=== PATIENT | female | born 1960 | race African-American/Black ===

== ENCOUNTER 2017-12-27 11:05 | Emergency (ER) | payer MEDICAID ==
[~2017-12-27] VITALS: Ht 165.1 cm; Wt 56.7 kg
[2017-12-27] MEDS ORDERED: TRAMADOL HCL50 MG ORAL (11:19)
[2017-12-27] MEDS ORDERED: IBUPROFEN600 MG ORAL (11:19)
[2017-12-27] MEDS ORDERED: Lidocaine 1% 10mg/ml/Epi 0.005mg/ml 30ml vial INJ ONE (12:00)
[2017-12-27] MEDS ORDERED: Bacitracin Oint UD TOPIC ONE (12:00)
--- NOTE | 2017-12-27 13:28 | Emergency Room Report ---
History of Present Illness General Chief Complaint: Lower Extremity Injury Source: Patient Present Illness HPI Something hit her knee on December 01. She had x-rays done at [facility] which she reports were negative. She poorly tolerated the frantz wrap given to her as there was more pain and therefore did not use it. She had a hematoma there. She has been left with swelling in front of the knee. Doesn't limit her motion however she's had decreased sensation over it in addition to that it feels strange to her. She's been referred to emt driver. She's been taking Motrin and tramadol for the pain. She is here to see about getting it aspirated. No fevers, chills, calf pain, swelling, dyspnea, NVD, dysuria, headache. Allergies: Coded Allergies: No Known Allergies (Unverified , 12/27/17) Patient History Past Medical History: see triage record Social History: Reports: smoking Social History Narrative Last Menstrual Period: long time ago Reviewed Nursing Documentation: PMH: Agreed; PSxH: Agreed Nursing Documentation-PMH Past Medical History: No Stated History Review of Systems All Other Systems: negative except mentioned in HPI Physical Exam Vital Signs Date Time Temp Pulse Resp B/P (MAP) Pulse Ox O2 Delivery O2 Flow Rate FiO2 12/27/17 11:14 98.0 72 18 97/52 96 Room Air 98.1 Sp02 EP Interpretation: reviewed, normal General Appearance: well appearing, no apparent distress, thin Head: normocephalic, atraumatic Eyes: bilateral eye normal inspection ENT: hearing grossly normal, normal voice, moist mucus membranes Neck: full range of motion, supple Respiratory: no respiratory distress, speaking full sentences Gastrointestinal: normal inspection Musculoskeletal: back normal, digits/nails normal, gait/station normal, normal range of motion, no calf tenderness, swelling - prepatellar bursal swelling which is fluctuant Neurologic: alert, normal gait, sensory deficit - reported laterally over the effusion Psychiatric: mood/affect normal Skin: no rash, other - no erythema or warmth Procedures Additional Procedure Procedure Narrative Joint aspiration. Informed consent. Betadine. Drape, Lido epi. Aspirated 70 ml of pink tinged straw colored fluid. Tolerated well. Medical Decision Making Diagnostic Impression: Primary Impression: Prepatellar bursitis Qualified Codes: M70.41 - Prepatellar bursitis, right knee ER Course Patient post trauma to R knee with swelling. DDX: hematoma, bursitis, contusion , gout amongst others. No evidence of infection. Clinically, no fx and h/o prior x-rays neg. Discussed possibility of aspiration with risks of infection and re-accumulation. Patient agreed. Aspirated fluid with improvement. Fluid sent for analysis. Frantz applied by me. Position and tension excellent with normal neurovasc. Improved. Discussed need for follow up and elevation. Patient stable for outpatient observation and treatment. Labs Test 12/27/17 13:30 Body Fluid Source Right knee Body Fluid Volume 50 mL Body Fluid Appearance Slightly hazy Body Fluid RBC 97822 /CUMM Body Fluid Total Nucleated Cells 225 /CUMM Body Fluid Polynuclear WBCs (%) 10 % Body Fluid Mononuclear WBCs (%) 90 % Body Fluid Mesothelial Cells (%) 0 % Body Fluid Crystals None seen Body Fluid Glucose 54 mg/dL (.) Body Fluid Lactate Dehydrogenase 466 IU/L (.) Last Vital Signs Date Time Temp Pulse Resp B/P (MAP) Pulse Ox O2 Delivery O2 Flow Rate FiO2 12/27/17 13:48 98.0 75 18 108/65 96 Room Air 98.1 Status: improved Disposition: HOME, SELF-CARE Condition: Improved Referrals: NON PHYSICIAN (PCP) Ravin Earl M.D. December 27, 2017 13:28
[2017-12-27 13:48] VITALS: BP 108/65
== END 2017-12-27 13:48 | disposition home or self-care (01) ==
LOC: EMR 12:32
DX: M70.52 Other bursitis of knee, left knee (principal)
CPT/HCPCS: 82945; 87070; 87205; 89051; 89060; 99284; Z7502

== ENCOUNTER 2019-01-31 16:03 | Emergency (ER) | payer MEDICAID ==
[~2019-01-31] VITALS: Ht 165.1 cm; Wt 52.2 kg
[~2019-01-31 16:03] MED LIST: IBUPROFEN600 MG ORAL; TRAMADOL HCL50 MG ORAL
[2019-01-31 16:06] VITALS: BP 131/84
[2019-01-31] MEDS ORDERED: NKM (16:11)
--- NOTE | 2019-01-31 16:38 | NUR ---
ED Nurse Note: Patient presents to ER due to painful nodule on the right buttock since yesterday. Patient attempted to drain it after use of warm compress, but she does not recall if there was any drainages. Reports no fever or chills. Palpable nodule without drainage, redness or warmth, but tenderness.
--- NOTE | 2019-01-31 16:50 | Emergency Room Report ---
History of Present Illness General Chief Complaint: Skin Rash/Abscess Source: Patient Present Illness HPI 58-year-old female presents to the emergency department complaining of 6 out of 10 severity localized pain, swelling and palpable round mass to the tailbone since yesterday. Patient denies erythema, warmth she states that she was squeezing at it in an attempt to see if anything will come out for which nothing did. Patient denies fevers or chills she denies history of pilonidal cysts. Denies trauma or fall. She reports attempting several warm baths at home with no relief. Allergies: Coded Allergies: No Known Allergies (Unverified , 12/27/17) Patient History Past Medical History: see triage record Past Surgical History: none Pertinent Family History: none Now: No Reviewed Nursing Documentation: PMH: Agreed; PSxH: Agreed Nursing Documentation-PMH Past Medical History: No Stated History Review of Systems All Other Systems: negative except mentioned in HPI Physical Exam Vital Signs Date Time Temp Pulse Resp B/P (MAP) Pulse Ox O2 Delivery O2 Flow Rate FiO2 01/31/19 16:06 98.1 90 16 131/84 (100) 99 Room Air Sp02 EP Interpretation: reviewed, normal General Appearance: no apparent distress, alert, GCS 15, non-toxic Head: normocephalic, atraumatic Eyes: bilateral eye normal inspection, bilateral eye PERRL ENT: hearing grossly normal, normal voice Neck: full range of motion Respiratory: lungs clear, normal breath sounds, speaking full sentences Cardiovascular #1: regular rate, rhythm Gastrointestinal: non tender, soft Rectal: deferred, other - 1cm well circumscribed palpable nodule at the gluteal cleft with small sinus noted, no fluctuance, no erythema or warmth. Musculoskeletal: back normal, gait/station normal, normal range of motion, non- tender Neurologic: alert, oriented x3, responsive, motor strength/tone normal, sensory intact, normal gait, speech normal, grossly normal Psychiatric: judgement/insight normal Skin: normal color, no rash, warm/dry, well hydrated, other - 1cm well circumscribed palpable nodule at the gluteal cleft with small sinus noted, no fluctuance, no erythema or warmth. Medical Decision Making PA Attestation Dr. Eddy is my supervising Physician whom patient management has been discussed with. Diagnostic Impression: Primary Impression: Pilonidal cyst without abscess Additional Impression: Pilonidal sinus ER Course 58-year-old female presents to the emergency department complaining of 6 out of 10 severity localized pain, swelling and palpable round mass to the tailbone since yesterday. Patient denies erythema, warmth she states that she was squeezing at it in an attempt to see if anything will come out for which nothing did. Patient denies fevers or chills she denies history of pilonidal cysts. Denies trauma or fall. She reports attempting several warm baths at home with no relief. Denies fevers or chills. Denies BRBPR, Constipation or rectal pain. pt. denies hx of pilonidal cysts or abscess. Ddx considered but are not limited to cellulitis, abscess, deyvi-rectal abscess, hemorrhoid just to name a few. . Vital signs: are WNL, pt. is afebrile H&PE are most consistent with swollen pilonidal cyst/abscess. - 1cm well circumscribed palpable nodule at the gluteal cleft with small sinus noted, no fluctuance, no erythema or warmth. - d/w pt. options of oral abx and conservative tx vs. I &D. --collaborative decision to try least invasive conservative outpatient treatment with oral abx. Pt. given ED return precautions for worsening or new symptoms. ORDERS: -none ED INTERVENTIONS: - -I do not identify an emergent condition at this time. With current presentation , pt. is stable for close outpatient follow up and conservative treatment. D/ w pt. to return promptly to ED with worsening or new symptoms.- Pt. verbalizes ' understanding and agreement with proposed treatment plan.proposed treatment plan. DISCHARGE: At this time pt. is stable for d/c to home. Will provide printed patient care instructions, and any necessary prescriptions. Care plan and follow up instructions have been discussed with the patient prior to discharge. Last Vital Signs Date Time Temp Pulse Resp B/P (MAP) Pulse Ox O2 Delivery O2 Flow Rate FiO2 01/31/19 16:06 98.1 16 131/84 99 Room Air 01/31/19 16:06 90 Status: improved Disposition: HOME, SELF-CARE Condition: Stable Patient Instructions: Pilonidal Cyst Additional Instructions: Take medications as directed. Follow up with a Primary Care Provider in 3-5 days, even if your symptoms have resolved. --Please review list of primary care clinics, if you do not already have a primary care provider Return sooner to ED if new symptoms occur, or current symptoms become worse. Do not drink alcohol, drive, or operate heavy machinery while taking Tylenol # 3 as this may cause drowsiness. - Please note that this Emergency Department Report was dictated using [employer] program coordinator technology software, occasionally this can lead to erroneous entry secondary to interpretation by the dictation equipment. Paz Mcmillan Jan 31, 2019 16:50
[2019-01-31] MEDS ORDERED: IBUPROFEN600 MG ORAL (16:53)
[2019-01-31] MEDS ORDERED: ACETAMINOPHEN-1 EAC1 ORAL (16:53)
[2019-01-31] MEDS ORDERED: AMOX TR-K CLV1 EAC3 ORAL (16:53)
--- NOTE | 2019-01-31 17:00 | NUR ---
ER DISCHARGE NOTE: Patient is being discharged from medical care. D/C instruction and prescription given to patient. All questions were answered. ID band removed. Ambulating out with steady gait with all her belongings.
== END 2019-01-31 17:00 | disposition home or self-care (01) ==
LOC: EMR 16:45
DX: L05.01 Pilonidal cyst with abscess (principal)
CPT/HCPCS: 99282

== ENCOUNTER 2019-02-04 16:47 | Emergency (ER) | payer MEDICAID ==
[~2019-02-04] VITALS: Ht 165.1 cm; Wt 52.2 kg
[~2019-02-04 16:47] MED LIST changes: +ACETAMINOPHEN-1 EAC1 ORAL; +AMOX TR-K CLV1 EAC3 ORAL; +NKM
[2019-02-04 16:49] VITALS: BP 112/72
[2019-02-04] MEDS ORDERED: Ketorolac 30mg Inj IM ONE (17:00)
--- NOTE | 2019-02-04 17:02 | Emergency Room Report ---
History of Present Illness General Chief Complaint: Skin Rash/Abscess Source: Patient Present Illness HPI 58-year-old female with no significant past medical history here complaining of increased pain and pressure of the side of her perianal mass. Patient was here 4 days ago complaining of a painful mass in anal area with no drainage. Was started on Augmentin and Tylenol 3 as well as ibuprofen. She did not follow-up with a primary care provider as she was told to do so as she says that she has never had a primary care physician as she does not get sick usually. Patient denies fever and chills, rating the pain 10 out of 10 without radiation. Denies pus drainage. Has been compliant with taking the medication. Denies bloody stool, abdominal pain, nausea vomiting, chest pain, shortness of breath, palpitation, and all other associated symptoms. Allergies: Coded Allergies: No Known Allergies (Unverified , 12/27/17) Patient History Past Medical History: see triage record Past Surgical History: unable to obtain Pertinent Family History: none Last Menstrual Period: 4 YEARS AGO Now: No Immunizations: UTD Reviewed Nursing Documentation: PMH: Agreed; PSxH: Agreed Nursing Documentation-PMH Past Medical History: No Stated History Review of Systems All Other Systems: negative except mentioned in HPI Physical Exam Vital Signs Date Time Temp Pulse Resp B/P (MAP) Pulse Ox O2 Delivery O2 Flow Rate FiO2 02/04/19 16:49 98.4 98 20 112/72 (85) 97 Room Air Sp02 EP Interpretation: reviewed, normal General Appearance: normal inspection, well appearing, no apparent distress, alert, GCS 15 Head: normocephalic, atraumatic Eyes: bilateral eye normal inspection, bilateral eye PERRL ENT: normal ENT inspection, hearing grossly normal Neck: normal inspection, full range of motion, supple Respiratory: normal inspection, chest non-tender, lungs clear Cardiovascular #1: normal inspection, normal peripheral pulses, regular rate, rhythm, no murmur Gastrointestinal: normal inspection, non tender, soft Rectal: other - Rafael assist with sinus and possible fistula formation Genitourinary: no CVA tenderness Musculoskeletal: normal inspection, back normal, digits/nails normal Neurologic: normal inspection, alert, oriented x3, responsive Psychiatric: normal inspection, judgement/insight normal Skin: no rash, normal color, other - rafael cyst with track and sinus formation Lymphatic: normal inspection, no adenopathy Medical Decision Making PA Attestation All my diagnosis and treatment plans were reviewed ad discussed with my supervising physician Dr. Massey Diagnostic Impression: Primary Impression: Pilonidal sinus with abscess ER Course 58-year-old female with no significant past medical history here complaining of increased pain and pressure of the side of her perianal mass. Patient was here 4 days ago complaining of a painful mass in anal area with no drainage. Was started on Augmentin and Tylenol 3 as well as ibuprofen. She did not follow-up with a primary care provider as she was told to do so as she says that she has never had a primary care physician as she does not get sick usually. Patient denies fever and chills, rating the pain 10 out of 10 without radiation. Denies pus drainage. Has been compliant with taking the medication. Denies bloody stool, abdominal pain, nausea vomiting, chest pain, shortness of breath, palpitation, and all other associated symptoms. Ddx considered but are not limited to : Cellulitis,rafael cyst, rafael abscess with sinus and tract Vital signs: are WNL, pt. is afebrile H&PE are most consistent with: pilonidal sinus with abscess ORDERS: bactrim DS, toradol, naproxen ED INTERVENTIONS: toradol DISCHARGE: At this time pt. is stable for d/c to home. Will provide printed patient care instructions, and any necessary prescriptions. Care plan and follow up instructions have been discussed with the patient prior to discharge. Patient to follow-up with a primary care provider I gave her a list of clinics that she could walk into her make appointment for referral to specialist for drainage of the prognosis as there is tract formation and sinus formation. Last Vital Signs Date Time Temp Pulse Resp B/P (MAP) Pulse Ox O2 Delivery O2 Flow Rate FiO2 02/04/19 16:49 98.4 98 20 112/72 (85) 97 Room Air Disposition: HOME, SELF-CARE Condition: Stable Scripts Acetaminophen With Codeine (T#3) (TYLENOL #3 TAB*) Y Tab 1 TAB ORAL Q8HR PRN for For Pain for 2 Days, #6 TAB Prov: Fariba Aviles 02/04/19 Naproxen* (NAPROXEN*) 500 Mg Tablet 500 MG ORAL TWICE A DAY, #30 TAB Prov: Sahelimoghavami,Nahal PA 02/04/19 Trimethoprim/Sulfamethoxazole 160/800* (BACTRIM DS TABLET*) 1 Each Tablet 1 TAB ORAL TWICE A DAY for 7 Days, #14 TAB 160/800 Prov: Fariba Aviles 02/04/19 Patient Instructions: Pilonidal Cyst Additional Instructions: Take medication as directed follow-up with a primary care provider Fariba Aviles Feb 04, 2019 17:02
[2019-02-04] MEDS ORDERED: NAPROXEN500 M2 ORAL (17:05)
[2019-02-04] MEDS ORDERED: ACETAMINOPHEN-1 EAC1 ORAL (17:05)
[2019-02-04] MEDS ORDERED: BACTRIM DS TAB1 EAC1 ORAL (17:05)
[2019-02-04 17:22] VITALS: BP 115/68
== END 2019-02-04 17:22 | disposition home or self-care (01) ==
LOC: EMR 17:04
DX: L05.01 Pilonidal cyst with abscess (principal)
CPT/HCPCS: 96372; 99283; J1885